=== PATIENT | male | born 1985 | race Caucasian/White ===

== ENCOUNTER 2017-03-24 13:05 | Emergency (ER) | payer OTHER ==
[~2017-03-24] VITALS: Ht 180.3 cm; Wt 141.0 kg
[2017-03-24 14:40] VITALS: BP 121/74
== END 2017-03-24 17:03 | disposition left against medical advice (07) ==
LOC: ER 14:48
DX: R10.13 Epigastric pain (principal)
CPT/HCPCS: 99281

== ENCOUNTER 2017-06-15 18:58 | Emergency (ER) | payer MEDICAID ==
[~2017-06-15] VITALS: Ht 180.3 cm; Wt 141.0 kg
[~2017-06-15 18:58] MED LIST: ASPI-1160 PO; ATOR10TA PO; CLOP75TA15 PO
[2017-06-15 19:05] VITALS: BP 134/84
== END 2017-06-15 20:25 | disposition left against medical advice (07) ==
LOC: ER 20:24
DX: R06.02 Shortness of breath (principal); Z53.21 Procedure and treatment not carried out due to patient leaving prior to being seen by health care provider

== ENCOUNTER 2017-06-16 01:22 | Emergency (ER) | payer MEDICAID ==
[~2017-06-16] VITALS: Ht 180.3 cm; Wt 141.0 kg
[2017-06-16 01:25] VITALS: BP 161/108
== END 2017-06-16 04:30 | disposition left against medical advice (07) ==
LOC: ER 01:22
DX: Z53.21 Procedure and treatment not carried out due to patient leaving prior to being seen by health care provider (principal)
CPT/HCPCS: 93005

== ENCOUNTER 2019-05-29 11:44 | Emergency (ER) | payer SELFPAY ==
[~2019-05-29] VITALS: Ht 172.7 cm; Wt 99.0 kg
[2019-05-29 13:44] LABS: CLARITY URINE CLEAR (CLEAR); COLOR URINE YELLOW (YELLOW); KETONES URINE TRACE (NEGATIVE); LEUKOCYTE ESTERASE URINE NEGATIVE (NEGATIVE); NITRITE URINE NEGATIVE (NEGATIVE); OCCULT BLOOD URINE NEGATIVE (NEGATIVE); PROTEIN URINE NEGATIVE (NEGATIVE); SPECIFIC GRAVITY URINE 1.027 (1.005-1.030)
[2019-05-29 13:49] VITALS: BP 122/80
== END 2019-05-29 14:00 | disposition home or self-care (01) ==
LOC: ER 11:44
DX: R10.9 Unspecified abdominal pain (principal); Z86.73 Personal history of transient ischemic attack (TIA), and cerebral infarction without residual deficits
CPT/HCPCS: 99283

== ENCOUNTER 2023-11-07 13:37 | Emergency (ER) | payer SELFPAY ==
[~2023-11-07] VITALS: Ht 177.8 cm; Wt 86.0 kg
[2023-11-07 13:44] VITALS: BP 146/90; PULSE 96; RESP 15; O2SAT 98
[2023-11-07] MEDS ORDERED: DEXT30SU17 MT (16:33)
[2023-11-07] MEDS ORDERED: ACET-2708 MT (16:33)
[2023-11-07] MEDS ORDERED: AZIT250T12 MT (16:33)
== END 2023-11-07 16:40 | disposition home or self-care (01) ==
LOC: ER 13:37
DX: J20.9 Acute bronchitis, unspecified (principal); I10 Essential (primary) hypertension; F15.10 Other stimulant abuse, uncomplicated; Z79.899 Other long term (current) drug therapy; Z86.73 Personal history of transient ischemic attack (TIA), and cerebral infarction without residual deficits
CPT/HCPCS: 99283

== ENCOUNTER 2024-11-11 13:12 | Inpatient (IN) | payer OTHER, MEDICAID ==
[~2024-11-11] VITALS: Ht 165.1 cm; Wt 113.9 kg
[~2024-11-11 13:12] MED LIST changes: +ACET-2708 MT; +AMLO2.5T45 PO; +CIPR500T5 MT; +METR-354 MT; +PROT40 MT
[2024-11-11] MEDS ORDERED: MORPHINE SULFATE 4 MG/ML INJ (FOR IV/IM USE) IV STA (15:45)
[2024-11-11] MEDS ORDERED: ONDANSETRON HCL 4MG/2ML INJ IV STA (15:45)
[2024-11-11 16:17] LABS: BASOPHILS % 0.9 % (0.0-2.0); HEMATOCRIT. 47.2 % (42.0-52.0); HEMOGLOBIN. 15.8 g/dL (14.0-18.0); LYMPHOCYTES % 16.3 % (20.0-50.0); MEAN CORPUSCULAR HEMOGLOBIN 30.4 pg (28.0-32.0); MEAN CORPUSCULAR HGB CONC 33.5 g/dL (31.0-37.0); MEAN CORPUSCULAR VOLUME 90.7 fL (80.0-94.0); MEAN PLATELET VOLUME 10.7 fl (7.4-10.4); MONOCYTES % 6.6 % (2.0-8.0); NEUTROPHILS % 70.2 % (40.0-76.0); PLATELET 219 x1000/uL (130-400); RED BLOOD CELL COUNT 5.21 mill/uL (4.7-6.1); WHITE BLOOD COUNT 12.2 x1000/uL (4.5-11.0)
[2024-11-11 16:23] LABS: CHLORIDE 104 mEq/L (98-107); POTASSIUM 3.6 mEq/L (3.5-5.1); SODIUM 139 mEq/L (136-145)
[2024-11-11 16:24] LABS: CARBON DIOXIDE 25 mEq/L (21-32)
[2024-11-11 16:25] LABS: CALCIUM 9.4 mg/dL (8.7-10.4)
[2024-11-11 16:29] LABS: CREATININE 0.9 mg/dL (0.6-1.3); GLUCOSE 96 mg/dL (70-105)
[2024-11-11 16:30] LABS: UREA NITROGEN BLOOD 11 mg/dL (9-23)
[2024-11-11 16:31] LABS: ALANINE AMINOTRANSFERASE 24 IU/L (10-49); ALBUMIN 4.2 g/dL (3.2-4.8); ASPARTATE AMINOTRANSFERASE 18 IU/L (<34)
[2024-11-11 16:32] LABS: BILIRUBIN DIRECT 0.3 mg/dL (<=3.0); BILIRUBIN TOTAL 0.7 mg/dL (0.1-1.0); PROTEIN TOTAL 8.5 g/dL (6.0-8.3)
[2024-11-11 16:34] LABS: PARTIAL THROMBOPLASTIN TIME 29.5 sec (23.4-31.0); PROTHROMBIN TIME 11.3 sec (9.6-11.0)
[2024-11-11] MEDS: ONDANSETRON HCL 4MG/2ML INJ IV NR (17:28)
[2024-11-11] MEDS: MORPHINE SULFATE 4 MG/ML INJ (FOR IV/IM USE) IV NR (17:28)
[2024-11-11] MEDS: SODIUM CHLORIDE 0.9% 1,000 ML IV ONE (17:29)
[2024-11-11] MEDS ORDERED: PIPERACILLIN/TAZO 3.375G/50ML 50 ML IV STA (17:45)
[2024-11-11 17:47] LABS: TROPONIN I HIGH SENSITIVITY < 4 ng/L (3.0-53)
[2024-11-12] MEDS ORDERED: MAGNESIUM/ALUMINUM HYDROXIDE/SIMETHICONE 30ML UDC PO PRN (01:15)
[2024-11-12] MEDS ORDERED: MORPHINE SULFATE 2 MG/ML INJ (NOT FOR IM USE) IV PRN (01:15)
[2024-11-12] MEDS ORDERED: ONDANSETRON HCL 4MG/2ML INJ IV PRN (01:15)
[2024-11-12] MEDS ORDERED: IPRATROPIUM/ALBUTEROL 0.5-3(2.5)MG/3ML NEB HHN PRN ×2 (01:15→16:15)
[2024-11-12] MEDS ORDERED: GUAIFENESIN 200MG/10ML SUGAR FREE UDC PO PRN (01:15)
[2024-11-12] MEDS ORDERED: ACETAMINOPHEN 325MG TABLET PO PRN ×3 (01:15→16:15)
[2024-11-12] MEDS: ONDANSETRON HCL 4MG/2ML INJ IV STA (01:38)
[2024-11-12] MEDS: MORPHINE SULFATE 4 MG/ML INJ (FOR IV/IM USE) IV STA (01:38)
[2024-11-12 02:10] VITALS: BP 144/77; PULSE 94; RESP 20; TEMP 36.55848; O2SAT 95
[2024-11-12 02:43] VITALS: BP 144/77; PULSE 94; RESP 20; TEMP 36.5848
[2024-11-12] MEDS ORDERED: CEFTRIAXONE 1GM/50ML 50 ML IV SCH (03:00)
[2024-11-12] MEDS: LACTATED RINGERS 1,000 ML IV SCH (03:07)
[2024-11-12] MEDS: PANTOPRAZOLE SODIUM 40 MG/VIAL IV SCH (03:36)
[2024-11-12 04:00] VITALS: BP 141/88; PULSE 103; RESP 20; TEMP 36.78072; O2SAT 97
[2024-11-12] MEDS: METRONIDAZOLE 500 MG PREMIX 100 ML IV SCH (06:22)
[2024-11-12] MEDS: CEFTRIAXONE 1GM/50ML 50 ML IV SCH (06:22)
[2024-11-12] MEDS: MEPERIDINE HCL/PF 100MG/ML CPJ IM PRN (06:42)
[2024-11-12 08:00] VITALS: BP 139/96; PULSE 87; RESP 18; TEMP 37.28076; O2SAT 97
[2024-11-12] MEDS: ENOXAPARIN 30MG/0.3ML SYR SUBCUT SCH (08:59)
[2024-11-12 11:17] LABS: CHLORIDE 104 mEq/L (98-107); POTASSIUM 3.5 mEq/L (3.5-5.1); SODIUM 138 mEq/L (136-145)
[2024-11-12 11:18] LABS: CARBON DIOXIDE 25 mEq/L (21-32)
[2024-11-12 11:23] LABS: CREATININE 0.7 mg/dL (0.6-1.3); GLUCOSE 74 mg/dL (70-105)
[2024-11-12 11:24] LABS: CREATINE KINASE MB FRACTION < 0.5 ng/mL (0.5-3.6)
[2024-11-12 11:25] LABS: ALANINE AMINOTRANSFERASE 23 IU/L (10-49); ASPARTATE AMINOTRANSFERASE 18 IU/L (<34); PROTEIN TOTAL 7.4 g/dL (6.0-8.3); UREA NITROGEN BLOOD 9 mg/dL (9-23)
[2024-11-12 11:26] LABS: PHOSPHORUS 3.7 mg/dL (2.5-4.9)
[2024-11-12 11:27] LABS: BILIRUBIN TOTAL 0.5 mg/dL (0.1-1.0)
[2024-11-12 11:28] LABS: CREATINE KINASE 88 IU/L (46-171)
[2024-11-12 11:30] LABS: TROPONIN I HIGH SENSITIVITY < 4 ng/L (3.0-53)
[2024-11-12 12:21] LABS: HEPATITIS B SURFACE ANTIGEN NEGATIVE (Negative)
[2024-11-12 12:43] LABS: HEPATITIS C AB NON REACTIVE (Neg) (Negative)
[2024-11-12] MEDS: KETOROLAC 30MG/ML VIAL IV PRN (15:22)
[2024-11-12 16:18] LABS: CLARITY URINE CLEAR (CLEAR); COLOR URINE DARK YELLOW (YELLOW); GLUCOSE URINE NEGATIVE (NEGATIVE); KETONES URINE 3+ (NEGATIVE); LEUKOCYTE ESTERASE URINE NEGATIVE (NEGATIVE); NITRITE URINE NEGATIVE (NEGATIVE); OCCULT BLOOD URINE NEGATIVE (NEGATIVE); PH URINE 5.5 (4.5-8.0); PROTEIN URINE NEGATIVE (NEGATIVE); SPECIFIC GRAVITY URINE 1.024 (1.005-1.030); UROBILINOGEN URINE 0.2 E.U./dL (0.2-1.0)
[2024-11-12 16:28] LABS: *AMPHETAMINES SCREEN URINE NEGATIVE (NEGATIVE); *BARBITURATES SCREEN URINE NEGATIVE (NEGATIVE); *BENZODIAZEPINES SCREEN URINE NEGATIVE (NEGATIVE); *COCAINE SCREEN URINE NEGATIVE (NEGATIVE)
[2024-11-12 16:29] LABS: CANNABINOID URINE SCREEN NEGATIVE (NEGATIVE); ECSTASY MDMA SCREEN URINE NEGATIVE (NEGATIVE); METHADONE URINE SCREEN NEGATIVE (NEGATIVE); OPIATES URINE SCREEN PRESUMPTIVE POSITIVE (NEGATIVE); PHENCYCLIDINE URINE SCREEN NEGATIVE (NEGATIVE)
[2024-11-12 19:10] LABS: CREATINE KINASE 78 IU/L (46-171)
[2024-11-12 19:11] LABS: CREATINE KINASE MB FRACTION < 0.5 ng/mL (0.5-3.6)
[2024-11-12 19:13] LABS: TROPONIN I HIGH SENSITIVITY < 4 ng/L (3.0-53)
[2024-11-13] MEDS: METRONIDAZOLE 500 MG PREMIX 100 ML IV SCH (00:13)
[2024-11-13 07:05] LABS: CARBON DIOXIDE 24 mEq/L (21-32); CHLORIDE 103 mEq/L (98-107); POTASSIUM 3.5 mEq/L (3.5-5.1); SODIUM 139 mEq/L (136-145)
[2024-11-13 07:06] LABS: CALCIUM 9.1 mg/dL (8.7-10.4)
[2024-11-13 07:11] LABS: CREATININE 0.8 mg/dL (0.6-1.3); GLUCOSE 67 mg/dL (70-105); TRIGLYCERIDE 92 mg/dL (0-150); UREA NITROGEN BLOOD 14 mg/dL (9-23)
[2024-11-13 07:12] LABS: LDL CHOLESTEROL 64 mg/dL (5-100)
[2024-11-13 07:13] LABS: CHOLESTEROL 107 mg/dL (<200); HDL CHOLESTEROL 30 mg/dL (>55); T4 FREE 1.31 ng/dL (0.89-1.76); THYROID STIMULATING HORMONE 0.14 uIU/mL (0.55-4.78)
[2024-11-13 07:37] LABS: BASOPHILS % 0.8 % (0.0-2.0); EOSINOPHILS % 6.4 % (0.0-5.0); HEMATOCRIT. 45.2 % (42.0-52.0); HEMOGLOBIN. 15.1 g/dL (14.0-18.0); LYMPHOCYTES % 19.2 % (20.0-50.0); MEAN CORPUSCULAR HEMOGLOBIN 30.7 pg (28.0-32.0); MEAN CORPUSCULAR HGB CONC 33.5 g/dL (31.0-37.0); MEAN CORPUSCULAR VOLUME 91.7 fL (80.0-94.0); MEAN PLATELET VOLUME 10.7 fl (7.4-10.4); MONOCYTES % 5.7 % (2.0-8.0); NEUTROPHILS % 67.9 % (40.0-76.0); PLATELET 216 x1000/uL (130-400); RED BLOOD CELL COUNT 4.93 mill/uL (4.7-6.1); RED CELL DISTRIBUTION WIDTH 12.6 % (11.6-14.6); WHITE BLOOD COUNT 8.5 x1000/uL (4.5-11.0)
[2024-11-13] MEDS: DEXT 5%/0.45% NACL 1000ML 1,000 ML IV SCH (07:45)
[2024-11-13] MEDS: ACETAMINOPHEN 325MG TABLET PO PRN (09:01)
[2024-11-13 12:00] VITALS: BP 130/86; PULSE 86; RESP 19; TEMP 36.72516; O2SAT 98
[2024-11-13 16:00] VITALS: BP 133/80; PULSE 85; RESP 20; TEMP 36.78072; O2SAT 97
[2024-11-13 20:00] VITALS: BP 126/80; PULSE 94; RESP 18; TEMP 36.72516; O2SAT 99
[2024-11-14] VITALS: BP 136/74; PULSE 69; RESP 18; TEMP 36.50292; O2SAT 98
[2024-11-14 04:00] VITALS: BP 121/74; PULSE 87; RESP 18; TEMP 36.61404; O2SAT 98
[2024-11-14 07:15] LABS: CHLORIDE 105 mEq/L (98-107); POTASSIUM 3.5 mEq/L (3.5-5.1); SODIUM 138 mEq/L (136-145)
[2024-11-14 07:16] LABS: CARBON DIOXIDE 20 mEq/L (21-32)
[2024-11-14 07:21] LABS: CREATININE 0.8 mg/dL (0.6-1.3); GLUCOSE 78 mg/dL (70-105); UREA NITROGEN BLOOD 13 mg/dL (9-23)
[2024-11-14 07:24] LABS: CALCIUM 8.8 mg/dL (8.7-10.4)
[2024-11-14 08:00] VITALS: BP_SYST 118; BP_SYST 126; BP_DIAS 46; BP_DIAS 57; PULSE 65; PULSE 78; RESP 18; RESP 19; TEMP 36.72516; O2SAT 98
[2024-11-14] MEDS: CLONIDINE 0.1MG TABLET PO PRN (09:25)
[2024-11-14 09:46] LABS: BASOPHILS % 0.8 % (0.0-2.0); DIFFERENTIAL COMMENT 0; EOSINOPHILS % 6.1 % (0.0-5.0); HEMATOCRIT. 44.1 % (42.0-52.0); HEMOGLOBIN. 14.8 g/dL (14.0-18.0); LYMPHOCYTES % 19.6 % (20.0-50.0); MEAN CORPUSCULAR HEMOGLOBIN 30.6 pg (28.0-32.0); MEAN CORPUSCULAR HGB CONC 33.6 g/dL (31.0-37.0); MEAN CORPUSCULAR VOLUME 91.1 fL (80.0-94.0); MONOCYTES % 5.4 % (2.0-8.0); NEUTROPHILS % 68.1 % (40.0-76.0); PLATELET 227 x1000/uL (130-400); RED BLOOD CELL COUNT 4.84 mill/uL (4.7-6.1); RED CELL DISTRIBUTION WIDTH 12.6 % (11.6-14.6)
[2024-11-14 12:00] VITALS: BP 140/67; PULSE 78; RESP 19; TEMP 36.61404; O2SAT 100
[2024-11-14 16:00] VITALS: BP 137/92; PULSE 88; RESP 18; TEMP 36.61404; O2SAT 100
[2024-11-14] MEDS: DOCUSATE SODIUM 100MG CAPSULE PO PRN (18:38)
[2024-11-14 20:00] VITALS: BP 117/79; PULSE 91; RESP 18; TEMP 36.61404; O2SAT 97
[2024-11-15] VITALS: BP 140/92; PULSE 74; RESP 19; TEMP 36.72516; O2SAT 99
[2024-11-15 04:00] VITALS: BP 146/96; PULSE 71; RESP 18; TEMP 35.78064; O2SAT 98
[2024-11-15 12:00] VITALS: BP 138/87; PULSE 69; RESP 18; TEMP 36.22512; O2SAT 96
[2024-11-15] MEDS ORDERED: PROT40 MT (14:16)
[2024-11-15] MEDS ORDERED: NAPR-681 MT (14:16)
[2024-11-15 15:28] VITALS: BP 138/87; PULSE 69; TEMP 98; O2SAT 96
[2024-11-15] MEDS: KETOROLAC 30MG/ML VIAL IV NR (15:44)
[2024-11-15 16:00] VITALS: BP 144/85; PULSE 77; RESP 18; TEMP 36.6696; TEMP 36.66960; O2SAT 96
== END 2024-11-15 17:00 | disposition home or self-care (01) ==
LOC: ER 13:12 → EDBEDREQ 15:51 → 6EST 11-12 00:18 → EDBEDREQ 11-12 00:21 → EDBEDREQTM 11-12 00:21 → EDBEDREQDT 11-12 00:21
PROVIDERS: ADMIT Internal Medicine; ATTEND Internal Medicine
DX: K80.62 Calculus of gallbladder and bile duct with acute cholecystitis without obstruction (principal); K76.0 Fatty (change of) liver, not elsewhere classified; G45.9 Transient cerebral ischemic attack, unspecified; R16.0 Hepatomegaly, not elsewhere classified; E66.01 Morbid (severe) obesity due to excess calories; F19.10 Other psychoactive substance abuse, uncomplicated; F10.90 Alcohol use, unspecified, uncomplicated; F17.210 Nicotine dependence, cigarettes, uncomplicated; Z79.899 Other long term (current) drug therapy; Z86.73 Personal history of transient ischemic attack (TIA), and cerebral infarction without residual deficits; Z68.41 Body mass index [BMI] 40.0-44.9, adult
CPT/HCPCS: 36415; 71045; 74176; 74181; 76705; 80048; 80053; 80061; 80076; 80305; 81003; 82550; 82553; 83735; 84100; 84439; 84443; 84484; 85025; 86705; 86850; 86900; 87340; 93005; 99285; A4606; A4663; J0696; J1650; J1885; J2175; J2270; J2405; J2470; J3490; J7030; J7120